=== PATIENT | female | born 1955 | race Caucasian/White ===

== ENCOUNTER 2023-07-25 11:22 | Outpatient (CLI) | payer MEDICARE, SELFPAY ==
--- NOTE | 2023-07-25 11:28 | USCV_ITS ---
Kasey Riojas Age: 68 Gender: F : 1955 Exam Date: 07/25/2023 11:44 Ordering Phys: Edi Marcial MD Technologist: [place] [facility] [place]ication: previous lft cea Risk Factors: Previous Vascular Surgery: Right Brachial BP: / Left Brachial BP: / Right Left Velocity (cm/s) Spectral Plaque Velocity (cm/s) Spectral Plaque Syst/Diast Broadening Syst/Diast Broadening 53.00/ 16.70 Prox CCA 65.90 / 16.70 59.50/ 21.90 Mid CCA 69.60 / 21.30 58.20/ 16.70 Distal CCA 56.20 / 15.80 183.90/62.30 Prox ICA 64.40 / 18.80 188.40/42.00 Mid ICA 54.00 / 19.60 63.30/ 19.80 Distal ICA 54.20 / 19.00 85.40 ECA 56.60 3.20 ICA/CCA 1.10 Antegrade Vertebral Antegrade 25.00/ 12.00 cm/s 37.80/ 12.90 cm/s Bi Subclavian Bi 110.8 137.2 0 0 CONCLUSIONS Right ICA stenosis 50-69%. Moderate atheromatous plaque right carotid bulb/ICA. Left ICA stenosis <50%. Mild atheromatous plaque left carotid bulb/ICA. Intimal thickening in the common carotid arteries and internal carotid arteries bilaterally. Normal antegrade Doppler flow noted in the right vertebral artery. Normal antegrade Doppler flow noted in the left vertebral artery. Kole Meza MD (Electronically Signed) Final Date: 25 July 2023 12:36 S
== END 2023-07-25 11:23 | disposition home or self-care (01) ==
LOC: RAD 11:23
PROVIDERS: Visit Provider Internal Medicine
DX: I65.23 Occlusion and stenosis of bilateral carotid arteries (principal)
CPT/HCPCS: 93880

== ENCOUNTER 2024-02-13 10:28 | Outpatient (CLI) | payer MEDICARE, SELFPAY ==
--- NOTE | 2024-02-13 10:40 | XRR_ITS ---
PROCEDURE INFORMATION: Exam: XR Left Hip Exam date and time: 02/13/2024 10:51 AM Age: 68 years old Clinical indication: Hip pain; Patient HX: Pain in left hip x indefinite time, injections, pain happens on and off; Additional info: Left hip pain TECHNIQUE: Imaging protocol: Radiologic exam of the left hip. Views: 2 or 3 views hip with pelvis when performed. COMPARISON: No relevant prior studies available. FINDINGS: Bones/joints: No acute fracture. Moderate to severe degenerative changes involving the left hip. Soft tissues: Unremarkable. XR/XR hip LT 2-3V wo/w pel* [id number] IMPRESSION: No acute bony abnormality. If symptoms persist, consider repeat plain films in 5-7 days. If there is clinical concern for internal derangement, then consider further evaluation with MRI, if MRI is clinically safe to obtain.
== END 2024-02-13 10:29 | disposition home or self-care (01) ==
PROVIDERS: Visit Provider Family Medicine
DX: M16.12 Unilateral primary osteoarthritis, left hip (principal)
CPT/HCPCS: 73502